=== PATIENT | male | born 1955 ===

== ENCOUNTER 2019-07-19 11:56 | Day surgery (SDC) | payer OTHER, MEDICAID, SELFPAY ==
--- NOTE | 2019-07-19 | PATH_ITS ---
[facility] Accession Number: [id number] . 01 Material submitted: . PART A: colon - ASCENDING COLON POLYP PART B: colon - HEPATIC FLEXURE POLYP BIOPSY . 02 Diagnosis: A. Ascending Colon Polyp: Multiple portions of tubular adenoma. . B. Hepatic Flexure Polyp, Biopsy: Tubular adenoma. I 07/21/2019 0923 Local . 02 Electronically signed: . Thais Conway MD, Pathologist NPI- [id number] . 01 Gross description: . Part A: ASCENDING COLON POLYP: Received in formalin are multiple fragment(s) of damico, soft tissue measuring 2.5 x 2.0 x 1.2 cm in aggregate submitted entirely in 3 cassette(s) Part B: HEPATIC FLEXURE POLYP BIOPSY: Received in formalin is 1 fragment(s) of damico, soft tissue measuring 0.5 x 0.2 x 0.2 cm submitted entirely in 1 cassette(s) /QBJ 07/20/2019 0733 Local . 02 Pathologist provided ICD-10: K63.5, Z86.010 . 02 CPT . 048982, 138446 Performed at: 01 [facility] [address], [place], [place] [id number] MD Dave Ferreira MD Phone: [phone] Performed at: 02 [facility] [address] [place], [place] [id number] MD Christina Perez MD Phone: [phone]
[2019-07-19 13:54] VITALS: BP 136/79; PULSE 70; RESP 15; TEMP 36.2; O2SAT 96; BMI 30.7
[2019-07-19] MEDS: SODIUM CHLORIDE 0.9% 1,000 ML 200 ML IV (14:01)
--- NOTE | 2019-07-19 14:48 | PM.PREOP ---
Pre-operative Note Interval Note History & Physical reviewed/Exam performed by Physician: Yes Changes to H&P: No ASA Class (for procedural sedation): II
--- NOTE | 2019-07-19 15:31 | PM.OP.ENDO ---
Operative Date/Time/Diagnoses Date of procedure: 07/19/19 Procedure & Clinicians Study performed: Colonoscopy with biopsy, saline and tattoo ink injection, snare polypectomy Moderate conscious sedation was administered by the endoscopy nurse and supervised by the endoscopist. The following parameters were monitored: Oxygen saturation, heart rate, blood pressure, and response to care. Sedation total: 5 mg midazolam, 100 mcg frontal Indications: Personal history of colon polyps, last colonoscopy was in 2014 Procedure Notes Procedure in detail: Prior to the procedure, history and physical was performed, and patient medications and allergies were reviewed. Preprocedure nursing history and assessment was reviewed. Patient identification and proposed procedure were verified by the physician and nurse in the procedure room. The physical status of the patient was reassessed after the procedure. After informed consent was obtained including risks, benefits, and alternatives, the scope was passed under direct vision. Throughout the procedure, the patient's blood pressure, pulse, and oxygen saturations were monitored continuously. The colonoscope was introduced through the anus and advanced to the cecum as identified by the appendiceal orifice and ileocecal valve. The patient tolerated the procedure well. Bowel prep was deemed adequate to detect polyps greater than 5 mm. Perianal and digital rectal examinations were unremarkable. Retroflexion in the rectum revealed grade 1 internal hemorrhoids An 18 mm sessile, lateral spreading polyp was identified in the proximal ascending colon. This was injected with saline for lift and completely removed in piecemeal with a hot and cold snare. Polyp was retrieved At the hepatic flexure/distal ascending colon, a 3.5 cm lateral spreading polyp occupying 2/3 of the circumference of the lumen was seen following removal of the proximal ascending colon polyp. This polyp was biopsied. Area tattooed with spot ink. There was significant looping in the sigmoid colon. Manual pressure and a scope stiffener were needed for completion of the colonoscopy and polypectomy. Impression: Internal hemorrhoids 18 mm polyp in the proximal ascending colon removed 3.5 cm laterally spreading polyp noted at the hepatic flexure/distal ascending colon. This was biopsied and area was tattooed. Significant looping in the sigmoid colon Sedation minutes: 40 Complications: other (EBL minimal. No complications) Post-procedure Plan for aftercare: Follow-up pathology results Refer to a general surgeon for removal of hepatic flexure/distal ascending colon polyp Repeat colonoscopy 1 year after surgical resection of hepatic flexure/distal ascending colon polyp Resume home medications except NSAIDs. Do not take NSAIDs for 10 days Discharge home with escort
[2019-07-19] MEDS: fentaNYL 250 MCG/5 ML INJ IV (15:33)
[2019-07-19] MEDS: MIDAZOLAM 5 MG/5 ML VIAL IV (15:33)
[2019-07-19 15:36] VITALS: BP 129/68; PULSE 55; RESP 13; TEMP 36.3; O2SAT 97
[2019-07-19 15:41] VITALS: BP 106/63; PULSE 52; RESP 14; O2SAT 98
[2019-07-19 15:46] VITALS: BP 114/63; PULSE 53; RESP 12; O2SAT 97
[2019-07-19 15:56] VITALS: BP 112/74; PULSE 57; RESP 14; O2SAT 100
[2019-07-19 16:05] VITALS: BP 132/81; PULSE 61; RESP 15; TEMP 36.5; O2SAT 97
== END 2019-07-19 16:20 | disposition home or self-care (01) ==
PROVIDERS: Referring Provider Internal Medicine; Visit Provider Internal Medicine
PROC: 0DJD8ZZ Inspection of Lower Intestinal Tract, Via Natural or Artificial Opening Endoscopic (ICD-10-PCS; CPT 45378; principal; 2019-07-19 14:00)
DX: Z12.11 Encounter for screening for malignant neoplasm of colon (principal); Z86.010 Personal history of colon polyps; K64.8 Other hemorrhoids; D12.2 Benign neoplasm of ascending colon; D12.3 Benign neoplasm of transverse colon
CPT/HCPCS: 45381; 45385; 45380; J2250; J3010